=== PATIENT | male | born 1985 | race Caucasian/White ===

== ENCOUNTER 2024-08-27 19:21 | Emergency (ER) | payer OTHER ==
[2024-08-27 19:34] VITALS: BP 127/76; PULSE 69; RESP 18; TEMP 98.2; BMI 20.3
[2024-08-27] MEDS ORDERED: predniSONE 20 MG TABLET (UD) ONE (19:51)
[2024-08-27] MEDS ORDERED: METHOCARBAMOL 500 MG TABLET ONE (19:51)
[2024-08-27] MEDS ORDERED: KETOROLAC TROMETHAMINE 60 MG/2 ML VIAL ONE (19:51)
[2024-08-27] MEDS: METHOCARBAMOL 500 MG TABLET PO ONE (19:57)
[2024-08-27] MEDS: predniSONE 20 MG TABLET (UD) PO ONE (19:57)
[2024-08-27] MEDS: KETOROLAC TROMETHAMINE 60 MG/2 ML VIAL IM ONE (19:57)
== END 2024-08-27 21:38 | disposition home or self-care (01) ==
LOC: FER 19:21
PROC: 3E0233Z Introduction of Anti-inflammatory into Muscle, Percutaneous Approach (ICD-10-PCS; principal; 2024-08-27)
DX: M54.50 Low back pain, unspecified (principal)
CPT/HCPCS: 99284-25